=== PATIENT | male | born 2005 | race Hispanic/Latino ===

== ENCOUNTER 2025-04-20 10:22 | Emergency (ER) | payer SELFPAY ==
[2025-04-20 10:23] VITALS: BP 135/81
--- NOTE | 2025-04-20 11:04 | ED.GENMED ---
History of Present Illness
General
Chief Complaint: Eye Problems
Source: patient
Exam Limitations: none
Time Seen by Provider: 04/20/25 10:42
History of Present Illness
History of Present Illness:
20-year-old male presents in referral from urgent care for foreign body in the right eye. He works in [employer] and was mowing yesterday and something flew in his eye. Urgent care tried to remove it but was unable to. They sent him here. He
denies any vision change. He does note light sensitivity. No other complaints
Phy Exam
Physical Exam
Physical Exam:
General: Well-appearing male no acute respiratory distress
HEENT: Normocephalic there is a foreign body in the right eye just medial to the edge of the iris. The lids were everted. There is no other foreign bodies. Pupil is reactive
Skin: Surrounding skin is without erythema
Course
Vital Signs
Initial and Last Documented VS:
Initial Vital Signs
Temp Pulse Resp BP Pulse Ox
98.1 F 56 16 135/81 98
04/20/25 10:23 04/20/25 10:23 04/20/25 10:23 04/20/25 10:23 04/20/25 10:23
Last Documented Vital Signs
Temp Pulse Resp BP Pulse Ox
98.1 F 56 16 135/81 98
04/20/25 10:23 04/20/25 10:23 04/20/25 10:23 04/20/25 10:23 04/20/25 10:23
MDM/Problems Addressed
Differential Diagnosis Includes:
Foreign body right eye. The right eye was anesthetized with proparacaine solution. 1 attempt was made at removing the foreign body with cotton swab however this was unsuccessful. An 18-gauge needle on empty syringe was then used to remove the
foreign body easily from the surface of the eye. The eye was then reexamined foreseen stain. There is no significant corneal defect. There is no foreign bodies under the lids. Patient started on gentamicin drops and was stable for discharge
*Pulse Oximetry
SaO2: 98
Oxygen Mode of Delivery: Room air
Patient hypoxic: no
*Critical Care Note
Total Time (30-74mins, 75-104mins- exclusive of procedures): Not Applicable
ED Attending Note
-
Portions of this chart may have been created with voice recognition software.� Occasional wrong word or��sound alike� substitutions may have occurred due to the inherent limitations of voice recognition software.
Discharge Plan
Departure
Patient Disposition: Home (Routine Discharge)
Date of Disposition: 04/20/25
Time of Disposition: 11:15
Patient with high blood pressure during this ER visit?: No
Discharge Problem:
Foreign body in eye
Instructions: Foreign Body in Eye (DC)
Activity Restrictions/Additional Instructions:
Use drops 1 drop every 4 hours into the right eye for the next 3 days. Your eye still may be sensitive to the sunlight, wear sunglasses outside. Return if needed
Discharge Date and Time
Print Language: TELUGU
[2025-04-20] MEDS: GENOPTIC 0.3% EYE DROPS 1 DROP OPHTH (11:31)
== END 2025-04-20 11:43 | disposition home or self-care (01) ==
LOC: EMR 10:22
PROVIDERS: EMERGENCY PHYSICIAN Emergency Medicine
DX: T15.91XA Foreign body on external eye, part unspecified, right eye, initial encounter (principal); X58.XXXA Exposure to other specified factors, initial encounter; Y93.H2 Activity, gardening and landscaping
CPT/HCPCS: 65205; 99283